=== PATIENT | male | born 1985 | race Caucasian/White ===

== ENCOUNTER 2016-06-27 13:13 | Emergency (ER) | payer OTHER, BC ==
[2016-06-27 13:21] VITALS: BP 148/84; PULSE 80; TEMP 98; BMI 39.5
[2016-06-27] MEDS ORDERED: diazePAM 5 MG TABLET PO ONE (14:35)
[2016-06-27] MEDS ORDERED: KETOROLAC TROMETHAMINE 60 MG/2 ML VIAL IM ONE (14:35)
[2016-06-27] MEDS ORDERED: KETOROLAC TROMETHAMINE 60 MG/2 ML VIAL ONE (14:41)
[2016-06-27] MEDS ORDERED: diazePAM 5 MG TABLET ONE (14:41)
--- NOTE | 2016-06-27 14:41 | PDOC ---
History of Present Illness - General Chief Complaint: Back Pain Stated Complaint: LOWER BACK PAIN Time Seen by Provider: 06/27/16 14:03 History Source: Patient Exam Limitations: No Limitations - History of Present Illness Initial Comments: 06/27/16 14:39 31 yr male with acute low back pain for 3 days started upon awakening. Pt states has history of back injury 08/06 and has had intermittent back pain since then. Pt c/o spasm at this time not relieved with Ibuprofen 800mg. Pt denies leg pain denies saddle anesthesia, denies urine or bowel dysfunction. Pt took a cab here. 06/27/16 14:40 Past History - Past Medical History Allergies/Adverse Reactions: Allergies Allergy/AdvReac Type Severity Reaction Status Date / Time No Known Allergies Allergy Verified 06/27/16 13:21 Home Medications: Ambulatory Orders Diazepam [Valium] 5 mg PO Q8H #12 tablet MDD 15mg 06/27/16 Naproxen [Naprosyn -] 500 mg PO BID PRN #28 tablet 06/27/16 Other medical history: back pain - Psycho/Social/Smoking Cessation Hx Suicidal Ideation: No Smoking History: Never smoked Information on smoking cessation initiated: No Hx Alcohol Use: No Drug/Substance Use Hx: No Substance Use Type: None Trauma Specific PMHX - Complaint Specific PMHX Back Injury: Yes (07/2015) Review of Systems - Review of Systems Able to Perform ROS?: Yes Is the patient limited Italian proficient: No Constitutional: No: Symptoms Reported HEENTM: No: Symptoms Reported Respiratory: No: Symptoms reported Cardiac (ROS): No: Symptoms Reported ABD/GI: No: Symptoms Reported : No: Symptoms Reported Musculoskeletal: Yes: Back Pain Integumentary: No: Symptoms Reported Neurological: No: Symptoms reported *Physical Exam - Vital Signs Last Vital Signs Temp Pulse Resp BP Pulse Ox 98 F 80 18 148/84 98 06/27/16 13:20 06/27/16 13:20 06/27/16 13:20 06/27/16 13:20 06/27/16 13:20 - Physical Exam General Appearance: Yes: Nourished, Appropriately Dressed HEENT: positive: EOMI, ADAN, Normal ENT Inspection, TMs Normal, Pharynx Normal Neck: positive: Supple. negative: Tender Respiratory/Chest: positive: Lungs Clear, Normal Breath Sounds Cardiovascular: positive: Regular Rhythm, Regular Rate Gastrointestinal/Abdominal: positive: Normal Bowel Sounds, Soft Musculoskeletal: positive: Normal Inspection, Decreased Range of Motion, Muscle Spasm (lower paraspinal pain , neg vetebral tenderness). negative: CVA Tenderness Extremity: positive: Normal Inspection, Normal Range of Motion Integumentary: positive: Normal Color, Dry, Warm Neurologic: positive: Fully Oriented, Alert, Normal Mood/Affect, Normal Response , Motor Strength 5/5 Medical Decision Making - Medical Decision Making 06/27/16 15:07 CC: ACUTE LOW BACK PAIN WITH SPASM will give toradol and valium check UA for blood possible stone will refer to ortho for follow up 06/27/16 15:11 pt asking for a note to not work Wednesday pt ambulatory dc plan discussed and pt agrees with care. all questions asked and answered before discharge. 06/27/16 17:37 *DC/Admit/Observation/Transfer Diagnosis at time of Disposition: Back pain Qualifiers: Back pain location: low back pain Chronicity: acute Back pain laterality: left Sciatica presence: without sciatica Qualified Code(s): M54.5 - Low back pain - Discharge Dispostion Disposition: HOME Condition at time of disposition: Stable - Prescriptions Prescriptions: Naproxen [Naprosyn -] 500 mg PO BID PRN #28 tablet PRN Reason: Back Pain Diazepam [Valium] 5 mg PO Q8H #12 tablet MDD 15mg - Referrals Referrals: Thompson Alfredo MD [Staff Physician] - - Patient Instructions Additional Instructions: follow with the orthopedist or your primary care next week for follow up take the medication as prescribed DO NOT DRIVE, OPERATE MACHINERY OR DRINK ALCOHOL WHILE TAKING VALIUM apply ice every 2hrs for 20 minutes alternate with heat for the next 3-4 days return if any worsening pain - Post Discharge Activity Work/School Note: Back to Work
[2016-06-27 15:08] LABS: URINE APPEARANCE CLEAR; URINE BILIRUBIN NEGATIVE (NEGATIVE); URINE COLOR LTYELLOW; URINE GLUCOSE (UA) NEGATIVE (NEGATIVE); URINE KETONE NEGATIVE (NEGATIVE); URINE LEUK ESTERASE NEGATIVE (NEGATIVE); URINE NITRITE NEGATIVE (NEGATIVE); URINE PROTEIN NEGATIVE (NEGATIVE); URINE UROBILINOGEN NEGATIVE E.U./dl (0.2-1.0)
[2016-06-27 15:09] LABS: URINE BLOOD 1+ (NEGATIVE)
[2016-06-27 15:10] LABS: URINE MUCUS RARE; URINE RBC 1 /hpf (0-3); URINE WBC 1 /hpf (3-5)
== END 2016-06-27 15:24 | disposition home or self-care (01) ==
LOC: JERFT 13:13
PROC: 3E0233Z Introduction of Anti-inflammatory into Muscle, Percutaneous Approach (ICD-10-PCS; principal; 2016-06-27)
DX: M54.5 Low back pain (principal); M62.830 Muscle spasm of back
CPT/HCPCS: 81003; 81015; 99281-25